=== PATIENT | female | born 1955 | race Caucasian/White ===

== ENCOUNTER 2017-06-08 10:45 | Emergency (ER) | payer BC ==
[2017-06-08 11:57] VITALS: BP 151/78
[2017-06-08] MEDS ORDERED: Albuterol/Ipratropium NEB.SOL* Albuterol 2.5 MG/Ipratropium 0.5 MG 3 ML INH ONE (12:07)
--- NOTE | 2017-06-08 12:20 | ED ---
Respiratory - HPI Summary HPI Summary: 61 yr old female with the onset of fatigue yesterday morning, followed by scratchy throat, myalgias, fever of 101.5 last night and coughing. She also feels SOB and like she has had some wheezing. - History of Current Complaint Chief Complaint: UCRespiratory Stated Complaint: FEVER, COUGH Time Seen by Provider: 06/08/17 11:58 Pain Intensity: 4 - Allergy/Home Medications Allergies/Adverse Reactions: Allergies Allergy/AdvReac Type Severity Reaction Status Date / Time fexofenadine [From Ronda] Allergy Joint Pain Verified 06/08/17 11:50 sulfamethoxazole Allergy Unknown Verified 06/08/17 11:50 [From Bactrim] Reaction Details trimethoprim [From Bactrim] Allergy Unknown Verified 06/08/17 11:50 Reaction Details PMH/Surg Hx/FS Hx/Imm Hx Endocrine/Hematology History: Reports: Hx Thyroid Disease - Hypothyroidism Denies: Hx Diabetes Cardiovascular History: Denies: Hx Hypertension Respiratory History: Denies: Hx Asthma, Hx Chronic Obstructive Pulmonary Disease (COPD) GI History: Denies: Hx Ulcer - Surgical History Surgery Procedure, Year, and Place: Kidney Stones, 2013, [facility]. Right Hand Carpal Tunnel, 2000, [facility]. , [facility], [facility]. Tonsillectomy, ~1962, [facility] Infectious Disease History: No Infectious Disease History: Denies: Hx Clostridium Difficile, Hx Hepatitis, Hx Human Immunodeficiency Virus (HIV), Hx of Known/Suspected MRSA, Hx Shingles, Hx Tuberculosis, Hx Known/ Suspected VRE, Hx Known/Suspected VRSA, History Other Infectious Disease, Traveled Outside the in Last 30 Days - Family History Known Family History: Positive: Unknown Negative: Diabetes - Social History Alcohol Use: None Substance Use Type: Reports: None Smoking Status (MU): Never Smoked Tobacco Have You Smoked in the Last Year: No Review of Systems Positive: Fever, Chills Positive: Shortness Of Breath, Cough Positive: Myalgia All Other Systems Reviewed And Are Negative: Yes Physical Exam Triage Information Reviewed: Yes Vital Signs On Initial Exam: Initial Vitals Temp Pulse Resp BP Pulse Ox 98.8 F 84 26 151/78 96 06/08/17 11:54 06/08/17 11:54 06/08/17 11:54 06/08/17 11:54 06/08/17 11:54 Vital Signs Reviewed: Yes Appearance: Positive: Well-Appearing, No Pain Distress Skin: Positive: Warm Head/Face: Positive: Normal Head/Face Inspection Eyes: Positive: EOMI, GENIA ENT: Positive: Pharynx normal, Nasal congestion, TMs normal Neck: Positive: Nontender Respiratory/Lung Sounds: Positive: Wheezes - left lingular area Cardiovascular: Positive: RRR. Negative: Murmur Abdomen Description: Positive: Nontender Musculoskeletal: Positive: Strength/ROM Intact Neurological: Positive: Sensory/Motor Intact, Alert, Oriented to Person Place, Time, CN Intact II-III Psychiatric: Positive: Normal - Long Coma Scale Best Eye Response: 4 - Spontaneous Best Motor Response: 6 - Obeys Commands Best Verbal Response: 5 - Oriented Coma Scale Total: 15 Diagnostics - Vital Signs Vital Signs Temp Pulse Resp BP Pulse Ox 06/08/17 11:54 98.8 F 84 26 151/78 96 - Laboratory Lab Statement: Any lab studies that have been ordered have been reviewed, and results considered in the medical decision making process. - Radiology chest pa/lat Xray Interpretation: No Acute Changes Radiology Interpretation Completed By: Radiologist Disposition - Course Course Of Treatment: 61 yr old with SOB, coughing. - Diagnoses Provider Diagnoses: Shortness of breath, Hypertension Discharge - Sign-Out/Discharge Documenting (check all that apply): Discharge/Admit/Transfer - Discharge Plan Condition: Good Disposition: AGAINST MEDICAL ADVICE Patient Education Materials: Shortness of Breath (ED), Hypertension (ED) Referrals: Darrell Aragon MD [Primary Care Provider] - - Billing Disposition and Condition Condition: GOOD Disposition: AMA
--- NOTE | 2017-06-08 12:52 | RAD ---
INDICATION: Shortness of breath, cough. Wheezing. Fever. COMPARISON: December 20, 2016 TECHNIQUE: Dual energy PA and routine lateral views of the chest were obtained. REPORT: No focal pulmonary lesion, compelling alveolar consolidation, pleural effusion, pneumothorax. The heart, pulmonary vasculature, and mediastinal contours are unremarkable. Unremarkable soft tissue contours and osseous structures. IMPRESSION: No evidence for pneumonia. No evidence for acute intrathoracic disease.
== END 2017-06-08 13:21 | disposition left against medical advice (07) ==
LOC: UCCORT 10:45
DX: R06.02 Shortness of breath (principal); I10 Essential (primary) hypertension; Z53.21 Procedure and treatment not carried out due to patient leaving prior to being seen by health care provider; Z88.2 Allergy status to sulfonamides; Z88.8 Allergy status to other drugs, medicaments and biological substances
CPT/HCPCS: 71046; 87502; 99212; A9270-GY; G0463